=== PATIENT | female | born 1995 | race Caucasian/White ===

== ENCOUNTER 2024-01-12 17:52 | Inpatient (IN) | payer OTHER, SELFPAY ==
[~2024-01-12 17:52] MED LIST: Bupivacaine 0.25% HCL 30 ML VIAL ONE
[2024-01-12] MEDS ORDERED: hydrALAZINE 20 MG/ML VIAL SLOW IVP PRN ×2 (18:26→19:45)
[2024-01-12 18:41] LABS: Fetal Membranes Rupture RUPTURE DETECTED (No Rupture)
[2024-01-12 18:42] VITALS: BMI 25.7
[2024-01-12] MEDS ORDERED: Tranexamic Acid 1,000 MG/10 ML VIAL IVP PRN (19:38)
[2024-01-12] MEDS ORDERED: Carboprost 250 MCG/ML AMP IM PRN (19:45)
[2024-01-12] MEDS ORDERED: Ondansetron PF 4 MG/2 ML Vial IVP PRN (19:45)
[2024-01-12] MEDS ORDERED: Misoprostol 200 MCG TAB RC PRN (19:45)
[2024-01-12] MEDS ORDERED: Methylergonovine 0.2 MG/ML VIAL IM PRN (19:45)
[2024-01-12] MEDS ORDERED: Oxytocin 30 units/NS 500 ML 500 ML IV SCH (19:45)
[2024-01-12] MEDS ORDERED: Lidocaine 1% (PF) 30 ML VIAL SC PRN (19:45)
[2024-01-12] MEDS ORDERED: Promethazine HCl 25 MG/ML VIAL IM PRN (19:45)
[2024-01-12] MEDS ORDERED: Ibuprofen 800 MG TAB PO PRN (19:45)
[2024-01-12] MEDS ORDERED: Lactated Ringer's 1,000 ML IV SCH (19:45)
[2024-01-12 21:02] LABS: Hematocrit 38.5 % (34.9-44.5); Mean Corpuscular HGB CONC 36.4 g/dL (32.0-36.0); Mean Corpuscular Hemoglobin 34.8 pg (27.0-33.0); Mean Corpuscular Volume 95.8 fl (81.6-98.3); Mean Platelet Volume 11.7 fl (7.4-10.4); Platelet Count 194 10x3/uL (150-450); RBC Distribution Width 12.5 % (11.5-14.5); Red Blood Cell (RBC) Count 4.02 10x6/uL (3.90-5.03); White Blood Cell (WBC) Count 10.8 10x3/uL (3.5-10.5)
[2024-01-12] MEDS: Penicillin G Potassium 5 MILL.UNITS in Sodium Chloride 0.9% 100 ML IVPB SCH (21:30)
[2024-01-12] MEDS: Lactated Ringer's 1,000 ML IV SCH (21:31)
[2024-01-12 21:42] LABS: Syphilis Antibody Nonreactive (Nonreactive); Syphilis Antibody Index 0.04 S/CO (<1.00 Non-Reactive)
[2024-01-12 21:43] LABS: HBsAg Index 0.25 S/CO (0-0.99); Hep B Surf Ag - L&D Non-Reactive S/CO (NonReactive)
[2024-01-13] MEDS: Penicillin G 2.5 MILL.units 2.5 MILL.UNITS in Premix 1 BAG IVPB SCH (01:48)
[2024-01-13] MEDS: Misoprostol 100 MCG TAB PO SCH (08:01)
[2024-01-13] MEDS: fentaNYL 50 mcg/mL 1 mL Vial ONE (11:56)
[2024-01-13] MEDS ORDERED: fentaNYL 50 mcg/mL 1 mL Vial SLOW IVP PRN (12:01)
[2024-01-13] MEDS: fentaNYL/Ropivacaine Epidural 100 ML ONE (13:44)
[2024-01-13] MEDS ORDERED: Ondansetron PF 4 MG/2 ML Vial IVP PRN (13:52)
[2024-01-13] MEDS ORDERED: Naloxone HCl 0.4 mg/ml Vial IVP PRN ×2 (13:52)
[2024-01-13] MEDS ORDERED: diphenhydrAMINE 50 MG/ML VIAL IVP PRN (13:52)
[2024-01-13] MEDS ORDERED: ePHEDrine Sulfate 50 MG/10 ML VIAL SLOW IVP PRN (13:52)
[2024-01-13] MEDS ORDERED: Lactated Ringer's 500 ML IV PRN (13:52)
[2024-01-13] MEDS ORDERED: Moisturizing Cream (Eucerin) 113 GM JAR TOP PRN (13:52)
[2024-01-13] MEDS ORDERED: Promethazine HCl 25 MG/ML VIAL IM PRN (13:52)
[2024-01-13] MEDS ORDERED: Acetaminophen 325 MG TAB PO PRN (13:52)
[2024-01-13] MEDS ORDERED: fentaNYL 2 mcg/Ropivacaine 0.2% Epidural 100 ML CADD EPIDURAL SCH (14:00)
[2024-01-13] MEDS ORDERED: Communication Order-Pharmacy FS SCH (14:00)
[2024-01-13] MEDS ORDERED: Benzocaine-Menthol 82.5 ML CAN TOP PRN ×2 (16:06→18:36)
[2024-01-13] MEDS ORDERED: Bisacodyl 10 MG SUPP PR PRN ×2 (16:06→18:36)
[2024-01-13] MEDS ORDERED: hydrALAZINE 20 MG/ML VIAL SLOW IVP PRN ×2 (16:06→18:36)
[2024-01-13] MEDS ORDERED: Milk Of Magnesia 30 ML UDCUP PO PRN ×2 (16:06→18:36)
[2024-01-13] MEDS ORDERED: traMADol HCl 50 MG TAB PO PRN (18:36)
[2024-01-13] MEDS ORDERED: diphenhydrAMINE 25 MG CAP PO PRN (18:36)
[2024-01-13] MEDS ORDERED: Preparation H Ointment 28 GM TUBE PR PRN (18:36)
[2024-01-13] MEDS ORDERED: Lanolin Ointment 7 GM TUBE TOP PRN (18:36)
[2024-01-13] MEDS: traMADol HCl 50 MG TAB PO PRN (20:15)
[2024-01-13] MEDS: Docusate 100 MG CAP PO SCH (20:15)
[2024-01-13] MEDS ORDERED: Docusate 100 MG CAP PO SCH (21:00)
[2024-01-13] MEDS ORDERED: Ibuprofen 800 MG TAB PO SCH (22:00)
[2024-01-13] MEDS: Ibuprofen 800 MG TAB PO SCH (22:15)
[2024-01-14] MEDS: Ferrous Sulfate 325 MG TAB PO SCH (07:32)
[2024-01-14] MEDS ORDERED: Prenatal Vitamin 1 TAB PO SCH (09:00)
[2024-01-14] MEDS: Prenatal Vitamin 1 TAB PO SCH (09:35)
[2024-01-14 13:12] LABS: Group B Streptococcus by PCR Not Detected (NotDetected)
[2024-01-14] MEDS ORDERED: traMADol HCl 50 MG TAB PO PRN (14:00)
[2024-01-15 08:04] VITALS: BP 120/63; TEMP 98.7
[2024-01-15] MEDS: Boostrix 0.5 ML (Tdap) VIAL (>/=7 yrs of age) IM ONE (08:28)
[2024-01-15] MEDS: Ferrous Sulfate 325 MG TAB PO SCH (08:29)
== END 2024-01-15 15:30 | disposition home or self-care (01) | DRG 805 ==
LOC: CSHLD/OP 17:52 → CSHLD 19:25 → CSHPP 01-13 18:10
PROVIDERS: ADMIT Obstetrics & Gynecology; ATTEND Obstetrics & Gynecology
PROC: 10E0XZZ Delivery of Products of Conception, External Approach (ICD-10-PCS; principal; 2024-01-13)
PROC: 0HQ9XZZ Repair Perineum Skin, External Approach (ICD-10-PCS; 2024-01-13)
PROC: 3E0234Z Introduction of Serum, Toxoid and Vaccine into Muscle, Percutaneous Approach (ICD-10-PCS; 2024-01-15)
DX: O42.013 Preterm premature rupture of membranes, onset of labor within 24 hours of rupture, third trimester (principal); O60.13X0 Preterm labor second trimester with preterm delivery third trimester, not applicable or unspecified; Z37.0 Single live birth; O42.02 Full-term premature rupture of membranes, onset of labor within 24 hours of rupture; O70.0 First degree perineal laceration during delivery; O26.893 Other specified pregnancy related conditions, third trimester; Z3A.36 36 weeks gestation of pregnancy; Z67.21 Type B blood, Rh negative
CPT/HCPCS: 36415; 51702; 84112; 85027; 85461; 86780; 86850; 86870; 86900; 86901; 87340; 87653; 90384; 96372; 99285; J0665; J2540; J3010; J3490; J7120